=== PATIENT | male | born 1970 | race Caucasian/White ===

== ENCOUNTER 2018-09-23 11:05 | Day surgery (SDC) | payer OTHER ==
[~2018-09-23] VITALS: Ht 175.3 cm; Wt 85.5 kg
[~2018-09-23 11:05] MED LIST: DIPH50; EPIN.3I IM; HYDACE5 PO; HYDPAM25 PO; LISI5 PO; MONT10T; OMEP20ER PO; PRED10 PO; PROB500; RANI150; TRIA80TC TOP
--- NOTE | 2018-09-23 12:45 | NUR ---
09/23/18 1245 Valeria Yancey T/O AND SITE CHECK DONE, DR RANDHAWA PREFORMS THE ISB
--- NOTE | 2018-09-23 15:36 | NUR ---
09/23/18 1536 Lupe Hope RECEIVED REPORT FROM CAIO ROSAS. PATIENT IN CHAIR, AT CHAIRSIDE PATIENT IN PAIN AND RATES PAIN 8/10 MEDICATED PER MD ORDER. ALSO C/O HAND AND FINGERS TINGLING. GOOD CAPILLARY REFILL. HAND DOES FEEL COLD PROBABLY DUE TO POLAR CARE WILL CONTINUE TO MONITOR
== END 2018-09-23 16:15 | disposition home or self-care (01) ==
LOC: ORSCSDS 11:05
PROVIDERS: Orthopaedic Surgery
PROC: 0LQ24ZZ Repair Left Shoulder Tendon, Percutaneous Endoscopic Approach (ICD-10-PCS; principal; 2018-09-23 13:00)
PROC: 0RNK4ZZ Release Left Shoulder Joint, Percutaneous Endoscopic Approach (ICD-10-PCS; principal; 2018-09-23 13:00)
DX: M75.42 Impingement syndrome of left shoulder (principal); M75.52 Bursitis of left shoulder; M75.122 Complete rotator cuff tear or rupture of left shoulder, not specified as traumatic; I10 Essential (primary) hypertension; Z79.899 Other long term (current) drug therapy
CPT/HCPCS: A9270-GY; C1713; J0171; J0690; J1100; J1885; J2250; J2405; J2704; J2795; J3010; J7120

== ENCOUNTER 2019-05-21 12:41 | Day surgery (SDC) | payer OTHER ==
[~2019-05-21] VITALS: Ht 175.3 cm; Wt 83.8 kg
--- NOTE | 2019-05-21 15:16 | NUR ---
05/21/19 1516 Marjorie Rhodes 1433 APPOLOGIZED TO PT. FOR RUNNING BEHIND. PT. WARM ENOUGH & CALL LIGHT IS WITHIN REACH. 1515 UPDATED PT. THAT WOULD BE BRINGING HIM IN TO PROCEDURE ROOM SOON. WAS UPDATED THAT HER WAS GETTING READY TO GO IN FOR PROCEDURE & THAT DR. DEL TORO WAS RUNNING BEHIND.
--- NOTE | 2019-05-21 16:49 | NUR ---
05/21/19 7112 Marjorie Rhodes WHEN ASKED PT. IF HE HAD ANY PAIN, PT. VERBALIZED HIS STOMACH HURT, FELT LIKE CRAMPING IN HIS ABD. PT.INSTRUCTED THAT IT WAS PROBABLY JUST SOME AIR IN HIS COLON THAT WOULD EITHER ABSORB OR HE WOULD PASS. PT. & HIS WERE INSTRUCTED THAT HE ALSO VOMITED AT THE END OF THE PROCEDURE, A SMALL AMT. & ALSO THAT A JAW THRUST WAS PERFORMED SO IF HIS JAW WAS SORE IT WAS FROM THE JAW THRUST. PT. DENIED ANY NAUSEA OR SORE THROAT & HIS LUNGS WERE CLEAR.
== END 2019-05-21 16:45 | disposition home or self-care (01) ==
LOC: ORSCSDS 12:41
PROVIDERS: Student in an Organized Health Care Education/Training Program
PROC: 0DBK8ZX Excision of Ascending Colon, Via Natural or Artificial Opening Endoscopic, Diagnostic (ICD-10-PCS; principal; 2019-05-21 14:00)
PROC: 0DBN8ZX Excision of Sigmoid Colon, Via Natural or Artificial Opening Endoscopic, Diagnostic (ICD-10-PCS; principal; 2019-05-21 14:00)
PROC: 0DBP8ZX Excision of Rectum, Via Natural or Artificial Opening Endoscopic, Diagnostic (ICD-10-PCS; principal; 2019-05-21 14:00)
DX: Z12.11 Encounter for screening for malignant neoplasm of colon (principal); K63.5 Polyp of colon; D12.8 Benign neoplasm of rectum; K57.30 Diverticulosis of large intestine without perforation or abscess without bleeding; I10 Essential (primary) hypertension; Z79.899 Other long term (current) drug therapy
CPT/HCPCS: 88305; J2704; J7120

== ENCOUNTER → 2020-03-21 | Outpatient (CLI) | payer OTHER ==
[~2020-03-21] MED LIST changes: +ACIDOPHILUS1 EAC3 PO; +MAGNESIUM GLU27.5 M1 PO
== END | disposition home or self-care (01) ==
LOC: PLD 10:51 → LAB SHORT 10:51
DX: D22.5 Melanocytic nevi of trunk (principal); L57.8 Other skin changes due to chronic exposure to nonionizing radiation; L81.9 Disorder of pigmentation, unspecified
CPT/HCPCS: 88305

== ENCOUNTER 2020-11-02 10:54 | Emergency (ER) | payer BC, OTHER ==
[~2020-11-02] VITALS: Ht 175.3 cm; Wt 78.9 kg
[2020-11-02] MEDS ORDERED: AMOCLA875 PO (12:23)
== END 2020-11-02 13:16 | disposition home or self-care (01) ==
LOC: ER 10:54
DX: S61.451A Open bite of right hand, initial encounter (principal); S71.151A Open bite, right thigh, initial encounter; S81.852A Open bite, left lower leg, initial encounter; I10 Essential (primary) hypertension; Z79.899 Other long term (current) drug therapy; W54.0XXA Bitten by dog, initial encounter
CPT/HCPCS: 73130; 90471; 90714; 99283-25; A9270

== ENCOUNTER → 2021-02-20 | Outpatient (CLI) | payer OTHER, BC ==
[~2021-02-20] MED LIST changes: +AMOCLA875 PO
[2021-02-20 18:41] LABS: BASOPHILS ABSOLUTE AUTO 0.05 K/mm3 (0.00-0.23); BASOPHILS PERCENT AUTO 0 % (0-2); EOSINOPHILS ABSOLUTE AUTO 0.04 K/mm3 (0.00-0.68); EOSINOPHILS PERCENT AUTO 0 % (0-6); Hematocrit 47.4 % (37.0-53.0); IMMATURE GRAN ABSOLUTE AUTO 0.15 K/mm3 (0.00-0.10); IMMATURE GRAN PERCENT AUTO 1 % (0-1); LYMPHOCYTES ABSOLUTE AUTO 2.03 K/mm3 (0.84-5.20); LYMPHOCYTES PERCENT AUTO 18 % (21-46); MONOCYTES ABSOLUTE AUTO 0.91 K/mm3 (0.16-1.47); MONOCYTES PERCENT AUTO 8 % (4-13); Mean Corpuscular HGB 31.6 pg (26.0-34.0); Mean Corpuscular HGB Conc 33.8 g/dL (31.5-36.5); Mean Corpuscular Volume 94 fL (80-100); Mean Platelet Volume 9.1 fL (9.1-12.4); NEUTROPHILS ABSOLUTE AUTO 8.23 K/mm3 (1.96-9.15); NEUTROPHILS PERCENT AUTO 72 % (41-73); Platelet Count 315 K/mm3 (150-400); RDW Coefficient Variation 13.9 % (11.7-14.2); RDW Standard Deviation 47.8 fL (35.1-46.3); Red Blood Cell Count 5.06 M/mm3 (4.30-5.90); White Blood Cell Count 11.41 K/mm3 (4.00-11.30)
[2021-02-20 19:09] LABS: Albumin, Blood 4.1 g/dL (3.4-5.0); Albumin/Globulin Ratio 1.2 (0.8-1.8); Bilirubin, Total 0.6 mg/dL (0.1-1.0); Bun/Creatinine Ratio 16.8 (12.0-20.0); Calcium, Blood 9.2 mg/dL (8.5-10.1); Creatinine, Blood 1.31 mg/dL (0.60-1.20); Globulin, Blood 3.4 g/dL (2.2-4.0); Potassium, Blood 4.4 mmol/L (3.5-5.5); Total Protein, Blood 7.5 g/dL (6.4-8.2)
== END | disposition home or self-care (01) ==
LOC: LAB SHORT 18:06 → LAB 18:06
PROVIDERS: Hospitalist
DX: T78.40XA Allergy, unspecified, initial encounter (principal)
CPT/HCPCS: 80053; 85025

== ENCOUNTER → 2021-03-07 | Outpatient (CLI) | payer OTHER, BC ==
[2021-03-07 18:18] LABS: Anion Gap 3 mmol/L (6-16); Blood Urea Nitrogen 17 mg/dL (8-24); Bun/Creatinine Ratio 15.9 (12.0-20.0); CO2, Blood 29 mmol/L (21-32); Calcium, Blood 8.6 mg/dL (8.5-10.1); Chloride, Blood 105 mmol/L (98-108); Creatinine, Blood 1.07 mg/dL (0.60-1.20); Glomerular Filtration Rate >60 (60-); Glucose, Blood 143 mg/dL (70-99); Potassium, Blood 4.3 mmol/L (3.5-5.5); Sodium, Blood 137 mmol/L (136-145)
[2021-03-08 13:11] LABS: SARS COV-2 IGG AB Positive (Negative)
== END | disposition home or self-care (01) ==
LOC: LAB 17:21 → LAB SHORT 17:21
PROVIDERS: Hospitalist
DX: Z11.9 Encounter for screening for infectious and parasitic diseases, unspecified (principal); N17.0 Acute kidney failure with tubular necrosis
CPT/HCPCS: 80048; 86769

== ENCOUNTER → 2022-02-14 | Outpatient (CLI) | payer OTHER ==
[2022-02-14 15:44] LABS: BASOPHILS ABSOLUTE AUTO 0.05 K/mm3 (0.00-0.23); BASOPHILS PERCENT AUTO 1 % (0-2); EOSINOPHILS PERCENT AUTO 2 % (0-6); Hematocrit 49.3 % (37.0-53.0); Hemoglobin 16.2 g/dL (13.5-17.5); IMMATURE GRAN ABSOLUTE AUTO 0.02 K/mm3 (0.00-0.10); IMMATURE GRAN PERCENT AUTO 0 % (0-1); LYMPHOCYTES ABSOLUTE AUTO 1.71 K/mm3 (0.84-5.20); LYMPHOCYTES PERCENT AUTO 34 % (21-46); MONOCYTES ABSOLUTE AUTO 0.47 K/mm3 (0.16-1.47); MONOCYTES PERCENT AUTO 9 % (4-13); Mean Corpuscular HGB 30.6 pg (26.0-34.0); Mean Corpuscular HGB Conc 32.9 g/dL (31.5-36.5); Mean Corpuscular Volume 93 fL (80-100); Mean Platelet Volume 8.9 fL (9.1-12.4); NEUTROPHILS PERCENT AUTO 53 % (41-73); Platelet Count 276 K/mm3 (150-400); RDW Coefficient Variation 13.1 % (11.7-14.2); RDW Standard Deviation 44.5 fL (35.1-46.3); White Blood Cell Count 5.05 K/mm3 (4.00-11.30)
[2022-02-14 16:45] LABS: Alanine Aminotransfer (ALT/SGP 24 U/L (12-78); Albumin/Globulin Ratio 1.5 (0.8-1.8); Alk Phos 69 U/L (50-136); Anion Gap 5 mmol/L (6-16); Aspartate Aminotrans (AST/SGOT 14 U/L (12-37); Bilirubin, Total 0.7 mg/dL (0.1-1.0); Blood Urea Nitrogen 16 mg/dL (8-24); Bun/Creatinine Ratio 15.2 (12.0-20.0); CHOL/HDL RATIO 4.5; CO2, Blood 28 mmol/L (21-32); Calcium, Blood 9.1 mg/dL (8.5-10.1); Chloride, Blood 107 mmol/L (98-108); Cholesterol 226 mg/dL (50-200); Creatinine, Blood 1.05 mg/dL (0.60-1.20); Globulin, Blood 2.6 g/dL (2.2-4.0); Glomerular Filtration Rate 85 (60-); Glucose, Blood 88 mg/dL (70-99); HDL Cholesterol 50 mg/dL (>39); Low Density Lipoprotein Chol 151 mg/dL (0-110); Potassium, Blood 4.5 mmol/L (3.5-5.5); Sodium, Blood 140 mmol/L (136-145); Total Protein, Blood 6.6 g/dL (6.4-8.2); Triglycerides 126 mg/dL (30-160); Very Low Density Lipoprot Chol 25 mg/dL (6-32)
== END | disposition home or self-care (01) ==
LOC: LAB 09:10 → LAB SHORT 09:10
PROVIDERS: Hospitalist
DX: Z12.5 Encounter for screening for malignant neoplasm of prostate (principal); I10 Essential (primary) hypertension; E78.00 Pure hypercholesterolemia, unspecified
CPT/HCPCS: 80053; 80061; 85025; G0103

== ENCOUNTER 2025-02-10 12:54 | Day surgery (SDC) | payer BC ==
[~2025-02-10] VITALS: Ht 175.3 cm; Wt 84.6 kg
[2025-02-10] VITALS (18 sets, daily range): BP systolic 121–159; BP diastolic 80–105
[2025-02-10] MEDS ORDERED: BUPR75 PO (13:24)
[2025-02-10] MEDS ORDERED: MIRT15 PO (13:25)
--- NOTE | 2025-02-10 13:38 | NUR ---
02/10/25 Candy Coburn CONFIRMED AND REVIEWED H&P, MEDCICATIONS, ALLERGIES, MEDICAL HISTORY, RESPIRATORY HISTORY, VITAL SIGNS, 3-LEAD EKG, CONSENTS, AND PHYSICIAN ORDERS. PATIENT CONFIRMS NPO STATUS AND AGREES WITH SCHEDULED PROCEDURE. MONITOR INTACT WITH CONTINUOUS PULSE OXIMETRY, CAPNOGRAPHY, 3-LEAD EKG, INTERMITTENT BP. SUPPLEMENTAL O2 TO BE TITRATED THROUGHOUT PROCEDURE TO MAINTAIN O2 SATURATION ABOVE 90%. PATIENT DETERMINED TO BE ASA APPROPRIATE FOR PROPOFOL SEDATION PRIOR TO START OF PROCEDURE BY .MALLAMPATI CLASS 2 AIRWAY: COMPLETE VISUALIZATION OF THE UVULA.
[2025-02-10] MEDS ORDERED: Midazolam HCl 1MG / ML 2ML Vial ONE (13:47)
--- NOTE | 2025-02-10 14:31 | NUR ---
Patient up to Ambulate independently. Gait steady. Discharge instructions reviewed with patient. Patient verbalizes understanding. Copy given to patient to take home. Discharged via wheelchair to private car for ride home.
== END 2025-02-10 14:30 | disposition home or self-care (01) ==
LOC: ORSCMMR 12:54 → ORD 13:30 → ORSCMMR 14:30
PROVIDERS: Family Medicine
PROC: 0DBP8ZX Excision of Rectum, Via Natural or Artificial Opening Endoscopic, Diagnostic (ICD-10-PCS; principal; 2025-02-10 13:30)
DX: Z12.11 Encounter for screening for malignant neoplasm of colon (principal); D12.8 Benign neoplasm of rectum; K57.30 Diverticulosis of large intestine without perforation or abscess without bleeding; Z86.0100 Personal history of colon polyps, unspecified; I10 Essential (primary) hypertension; E78.5 Hyperlipidemia, unspecified; E78.00 Pure hypercholesterolemia, unspecified; Z79.899 Other long term (current) drug therapy
CPT/HCPCS: 88305; J2250; J2704; J7120